=== PATIENT | female | born 1950 | race Caucasian/White ===

== ENCOUNTER 2020-12-27 17:37 | Emergency (ER) | payer MEDICARE ==
[~2020-12-27 17:37] MED LIST: SYMBICORT 80-10.2 GM INH
[2020-12-27 18:15] LABS: BASOPHIL 0.7 % (0-2); EOSINOPHIL 1.8 % (0-7); HCT 40.5 % (37.0-47.0); HGB 13.5 g/dl (12.5-16.0); LYMPHOCYTE 43.6 % (15-48); MCH 30.5 pg (25.0-31.0); MCHC 33.3 g/dL (32.0-36.0); MCV 91.6 fL (78.0-100.0); MONOCYTE 9.1 % (0-12); MPV 9.7 fL (6.0-9.5); NEUTROPHIL 44.5 % (41-80); NRBC 0; PLT 300 K/uL (150-400); RBC 4.42 M/uL (4.20-5.40); RDW 13.7 % (11.5-14.0); WBC 6.2 K/uL (4.0-10.5)
[2020-12-27 18:19] LABS: INR 0.97 (0.9-1.2); PROTHROMBIN TIME 12.2 SECONDS (11.4-13.6); PTT 22.6 SECONDS (22.2-34.7)
[2020-12-27 18:37] LABS: ALBUMIN 3.1 g/dL (3.4-5.0); BILIRUBIN - TOTAL 0.3 mg/dL (0.2-1.0); BUN/CREAT RATIO (CALC) 28.6 RATIO; CREATININE 0.7 mg/dL (0.51-0.95); GLOBULIN (CALCULATION) 4.1 g/dL; MAGNESIUM 1.8 mg/dL (1.8-2.4); POTASSIUM 4.1 mmol/L (3.5-5.1); TOTAL PROTEIN 7.2 g/dL (6.4-8.2)
[2020-12-27 18:51] LABS: CKMB 1.7 ng/mL (0.0-3.6); PRO-BNP 25 pg/mL (<125)
== END 2020-12-27 21:53 | disposition home or self-care (01) ==
LOC: FER 17:37
PROVIDERS: Emergency Medicine
DX: I25.118 Atherosclerotic heart disease of native coronary artery with other forms of angina pectoris (principal); I44.7 Left bundle-branch block, unspecified; R60.0 Localized edema; E11.9 Type 2 diabetes mellitus without complications; I10 Essential (primary) hypertension; E78.5 Hyperlipidemia, unspecified; J44.9 Chronic obstructive pulmonary disease, unspecified; G47.33 Obstructive sleep apnea (adult) (pediatric); E66.9 Obesity, unspecified; Z99.89 Dependence on other enabling machines and devices; Z87.19 Personal history of other diseases of the digestive system; Z95.1 Presence of aortocoronary bypass graft; Z79.82 Long term (current) use of aspirin; Z79.899 Other long term (current) drug therapy; Z20.822 Contact with and (suspected) exposure to COVID-19
CPT/HCPCS: 36415; 71045; 80053; 82553; 83605; 83735; 83874; 83880; 84484; 85025; 85610; 85730; 87040; 93005; U0002

== ENCOUNTER 2021-09-27 14:03 | Emergency (ER) | payer MEDICARE ==
[~2021-09-27] VITALS: Ht 172.7 cm; Wt 119.3 kg
[2021-09-27 15:20] LABS: BASOPHIL 0.6 % (0-2); EOSINOPHIL 1.6 % (0-7); HCT 41.3 % (37.0-47.0); HGB 13.7 g/dl (12.5-16.0); LYMPHOCYTE 36.2 % (15-48); MCH 30.3 pg (25.0-31.0); MCHC 33.2 g/dL (32.0-36.0); MCV 91.4 fL (78.0-100.0); MONOCYTE 8.2 % (0-12); MPV 9.5 fL (6.0-9.5); NEUTROPHIL 53.1 % (41-80); NRBC 0; PLT 331 K/uL (150-400); RBC 4.52 M/uL (4.20-5.40); RDW 13.4 % (11.5-14.0); WBC 6.3 K/uL (4.0-10.5)
[2021-09-27 15:31] LABS: ALBUMIN 3.4 g/dL (3.4-5.0); BILIRUBIN - TOTAL 0.3 mg/dL (0.2-1.0); BUN/CREAT RATIO (CALC) 23.2 RATIO; CREATININE 0.69 mg/dL (0.51-0.95); POTASSIUM 4.1 mmol/L (3.5-5.1); TOTAL PROTEIN 7.4 g/dL (6.4-8.2)
[2021-09-27] MEDS ORDERED: VIBRAMYCIN100 MG PO (18:18)
== END 2021-09-27 18:53 | disposition home or self-care (01) ==
LOC: FER 14:03
PROVIDERS: Nurse Practitioner Family
DX: M17.11 Unilateral primary osteoarthritis, right knee (principal); R06.02 Shortness of breath; E11.9 Type 2 diabetes mellitus without complications; I50.9 Heart failure, unspecified; J44.9 Chronic obstructive pulmonary disease, unspecified
CPT/HCPCS: 36415; 71045; 71275; 73564; 80053; 83880; 84484; 85025; 85379; 93005; Q9967

== ENCOUNTER 2022-04-25 00:09 | Emergency (ER) | payer MEDICARE ==
[~2022-04-25 00:09] MED LIST changes: +VIBRAMYCIN100 MG PO
[2022-04-25 01:40] LABS: BASOPHIL 0.6 % (0-2); EOSINOPHIL 1.5 % (0-7); HCT 39.2 % (37.0-47.0); HGB 13.3 g/dl (12.5-16.0); LYMPHOCYTE 26.9 % (15-48); MCH 30.4 pg (25.0-31.0); MCHC 33.9 g/dL (32.0-36.0); MCV 89.7 fL (78.0-100.0); MONOCYTE 8.8 % (0-12); MPV 9.4 fL (6.0-9.5); NRBC 0; PLT 305 K/uL (150-400); RBC 4.37 M/uL (4.20-5.40); RDW 13.8 % (11.5-14.0); WBC 9.7 K/uL (4.0-10.5)
[2022-04-25 01:58] LABS: BILIRUBIN - TOTAL 0.3 mg/dL (0.2-1.0); BUN/CREAT RATIO (CALC) 29.3 RATIO; CREATININE 0.75 mg/dL (0.51-0.95); GLOBULIN (CALCULATION) 3.9 g/dL; POTASSIUM 3.8 mmol/L (3.5-5.1); TOTAL PROTEIN 6.9 g/dL (6.4-8.2)
== END 2022-04-25 06:04 | disposition home or self-care (01) ==
LOC: FER 00:09
PROVIDERS: Internal Medicine
DX: T38.3X1A Poisoning by insulin and oral hypoglycemic [antidiabetic] drugs, accidental (unintentional), initial encounter (principal); I10 Essential (primary) hypertension; E11.9 Type 2 diabetes mellitus without complications
CPT/HCPCS: 36415; 80053; 85025; 99283